=== PATIENT | female | born 1985 | race Caucasian/White ===

== ENCOUNTER 2017-03-05 09:13 | Day surgery (SDC) | payer MEDICAID ==
[~2017-03-05 09:13] MED LIST: DIPHENHYDRAMINE HCL 50 MG/ML VIAL ONE; EPINEPHRINE INJ 1 MG/10 ML DISP.SYRIN ONE; FENTANYL CITRATE INJ/PF 100 MCG/2 ML AMPUL ONE; FLUMAZENIL INJ 0.5 MG/5 ML VIAL IV ONE; GLUCAGON,HUMAN RECOMB 1 MG INJ ONE; NALOXONE HCL INJ/PF 0.4 MG/1 ML SDV ONE; ONDANSETRON HCL INJ/PF 4 MG/2 ML SDV ONE; PROMETHAZINE HCL INJ 25 MG/1 ML VIAL ONE
[2017-03-05] MEDS: MIDAZOLAM 2 MG/2 ML INJ ONE ×2 (10:15→10:20)
--- NOTE | 2017-03-05 10:31 | Operative Report ---
Operative Report DATE OF SURGERY: 03/05/17 Operative Report: The risks benefits and alternatives of the procedure explained to the patient in detail and informed consent is obtained that GIF Olympus video scope was inserted into the patient's mouth and hypopharynx the esophagus is identified intubated and insufflated the scope was then advanced through the esophagus stomach and duodenum retroflexion maneuver is done the esophagus stomach and first and second portions of the duodenum examined PREOPERATIVE DIAGNOSIS: Epigastric pain POSTOPERATIVE DIAGNOSIS: Esophagitis. Hiatal hernia. Gastritis mucosal specimens obtained rule out Helicobacter pylori. Duodenitis OPERATION: EGD with biopsy SURGEON: IRVING BAZAN ANESTHESIA: Moderate Sedation - 4mg Versed, 75 g of fentanyl. Conscious sedation monitoring time 15 minutes. TISSUE REMOVED OR ALTERED: As noted above COMPLICATIONS: None. ESTIMATED BLOOD LOSS: none. INTRAOPERATIVE FINDINGS: No ulcers noted PROCEDURE: Patient tolerated the procedure well. No immediate postprocedure complications are noted. Patient is discharged in good condition. Discharge date 03/05/2017. Discharge diet: Regular. Discharge activity: Regular. 2-3 week follow-up to discuss findings. We'll await on biopsies. Patient is instructed to call the office or proceed to the emergency room should there be any further problems or questions.
[2017-03-05 11:38] VITALS: BP 118/86
== END 2017-03-05 11:35 | disposition home or self-care (01) ==
LOC: END 09:13
PROVIDERS: ATTEND Internal Medicine Gastroenterology
PROC: 0DB68ZX Excision of Stomach, Via Natural or Artificial Opening Endoscopic, Diagnostic (ICD-10-PCS; principal; 2017-03-05 09:30)
DX: K20.9 Esophagitis, unspecified (principal); K29.50 Unspecified chronic gastritis without bleeding; K29.80 Duodenitis without bleeding; K44.9 Diaphragmatic hernia without obstruction or gangrene; B18.2 Chronic viral hepatitis C; F17.210 Nicotine dependence, cigarettes, uncomplicated; I10 Essential (primary) hypertension; F41.9 Anxiety disorder, unspecified; Z79.899 Other long term (current) drug therapy; Z88.1 Allergy status to other antibiotic agents
CPT/HCPCS: 43239; 88342 ×2; 88305 ×2; J2250; J3010; J0171; J1200; J1610; J2310; J2405; J2550; J3490

== ENCOUNTER 2017-03-24 09:08 | Day surgery (SDC) | payer MEDICAID ==
[~2017-03-24 09:08] MED LIST changes: -DIPHENHYDRAMINE HCL 50 MG/ML VIAL ONE; -EPINEPHRINE INJ 1 MG/10 ML DISP.SYRIN ONE; -FENTANYL CITRATE INJ/PF 100 MCG/2 ML AMPUL ONE; -FLUMAZENIL INJ 0.5 MG/5 ML VIAL IV ONE; -GLUCAGON,HUMAN RECOMB 1 MG INJ ONE; -NALOXONE HCL INJ/PF 0.4 MG/1 ML SDV ONE; -ONDANSETRON HCL INJ/PF 4 MG/2 ML SDV ONE; -PROMETHAZINE HCL INJ 25 MG/1 ML VIAL ONE; +PROPOFOL INJ 200 MG/20 ML VIAL IV ONE
[2017-03-24 10:27] VITALS: BP 130/75
--- NOTE | 2017-03-24 11:39 | Operative Report ---
Operative Report DATE OF SURGERY: 03/24/17 Operative Report: The risks, benefits and alternatives of the procedure including risks of bleeding, perforation requiring surgery are explained to the patient detail and informed consent is obtained. Patient is taken back to the endoscopy suite and placed in a left, lateral decubital position. A rectal examination was done which did not reveal any masses, tears or fissures. An Olympus videoscope was inserted into the patient's rectum. The scope was then gradually advanced all the way to the cecum. The cecum was identified by the usual anatomical landmarks including the ileocecal valve as well as the appendiceal office. Photodocumentation is obtained. Scope was then sequentially pulled back creative rest segments of the colon including the ascending colon, hepatic flexure, transverse colon, splenic flexure, descending colon and finally into the rectosigmoid portions of the colon. Retroflexion maneuvers performed. PREOPERATIVE DIAGNOSIS: Abdominal pain, change of bowel habits. POSTOPERATIVE DIAGNOSIS: 3 polyps that are noted. One in the ascending colon is removed via snare polypectomy and retrieved. One in the hepatic flexure area , more sessile removed via snare polypectomy and retrieved. Sigmoid polyp sessile essentially ablated in situ after attempted snare polypectomy OPERATION: Colonoscopy with snare polypectomy SURGEON: IRVING BAZAN ANESTHESIA: LMAC TISSUE REMOVED OR ALTERED: All colon specimens retrieved COMPLICATIONS: None. ESTIMATED BLOOD LOSS: none. INTRAOPERATIVE FINDINGS: As described above. No AVMs, diverticulosis PROCEDURE: Patient tolerated the procedure well. No immediate postprocedure complications are noted. Patient is discharged in good condition. Discharge date 03/24/2017. Discharge diet: Regular. Discharge activity: Regular. 2-3 week follow-up to discuss findings. Given the number polyps, and her age would repeat colonoscopy next year. We'll await on biopsies. Patient is instructed to call the office or proceed to the emergency room should there be any further problems or questions.
== END 2017-03-24 10:35 | disposition home or self-care (01) ==
LOC: END 09:08
PROVIDERS: ATTEND Internal Medicine Gastroenterology
PROC: 0DBK8ZX Excision of Ascending Colon, Via Natural or Artificial Opening Endoscopic, Diagnostic (ICD-10-PCS; principal; 2017-03-24 10:00)
DX: D12.2 Benign neoplasm of ascending colon (principal); K63.5 Polyp of colon; I10 Essential (primary) hypertension; F17.210 Nicotine dependence, cigarettes, uncomplicated; R73.03 Prediabetes; B19.20 Unspecified viral hepatitis C without hepatic coma; Z88.1 Allergy status to other antibiotic agents
CPT/HCPCS: 45385; 88305 ×2; J2704; 810

== ENCOUNTER → 2020-08-24 | Outpatient (CLI) | payer BC, MEDICAID | LOC: OD 14:19 | PROVIDERS: ATTEND Internal Medicine Gastroenterology | DX: Z86.19 Personal history of other infectious and parasitic diseases (principal) | CPT/HCPCS: 36415; 87522 ==

== ENCOUNTER → 2020-10-02 | Outpatient (CLI) | payer BC, MEDICAID | LOC: OD 11:46 → EDSTATUS 10-05 08:00 | PROVIDERS: ATTEND Internal Medicine Gastroenterology | DX: Z01.812 Encounter for preprocedural laboratory examination (principal); Z20.828 Contact with and (suspected) exposure to other viral communicable diseases | CPT/HCPCS: U0003; C9803; 87635 ==